=== PATIENT | male | born 1950 | race Caucasian/White ===

== ENCOUNTER 2016-04-05 06:12 | Inpatient (IN) | payer OTHER ==
[2016-03-07 08:39] VITALS: BMI 55.0
--- NOTE | 2016-03-07 09:18 | PAT Medication Instructions ---
Service Date Mar 07, 2016. Current Home Medication List Naproxen (Aleve), 220 MG PO Q12 PRN for Pain Medication Instructions For Your Scheduled Surgery Naproxen (Aleve), 220 MG PO Q12 PRN for Pain (per surgeon instructions) - Take the following medications the morning of surgery with a sip of water: Tylenol (if needed) - Take the following medications as scheduled the night before surgery: Tylenol (if needed) If you have any questions please call us at [phone] or [phone] ( [place]) or [phone]
--- NOTE | 2016-03-07 10:09 | DIAGNOSTIC IMAGING REPORT ---
CHEST PREADMISSION(PA/LAT) CLINICAL HISTORY: Preoperative chest COMPARISON STUDY: No previous studies for comparison. FINDINGS: The heart is borderline enlarged. There is no failure. There is no focal pulmonary consolidation. There are no pleural effusions.[ IMPRESSION: No active disease in the chest. Electronically signed by: Alexandru Almendarez M.D. 03/07/2016 10:07 AM
[2016-03-07 10:14] LABS: BASO % 0.3 %; BASO ABS # 0.02 K/uL (0-0.2); COMPLETE YES; EOS % 3.5 %; IG% 0.3 %; LYMPH % 31.2 %; MEAN CELL VOLUME 85.2 fL (80-100); MEAN CORPUSCULAR HEMOGLOBIN 27.7 pg (25-34); MEAN CORPUSCULAR HGB CONC 32.4 g/dl (32-36); MEAN PLATELET VOLUME 9.7 fL (7.4-10.4); MONO % 9.2 %; NEUT % 55.5 %; PLATELET COUNT 321 K/uL (130-400); RED BLOOD COUNT 4.81 M/uL (4.7-6.1); WHITE BLOOD COUNT 7.05 K/uL (4.8-10.8)
[2016-03-07 10:29] LABS: PARTIAL THROMBOPLASTIN RATIO 1.1; PROTHROMBIN TIME (PATIENT) 10.5 SECONDS (9.0-12.0)
[2016-03-07 11:42] LABS: BUN/CREATININE RATIO 23.4 (10-20); C-REACTIVE PROTEIN 1.18 mg/dl (0-0.29); CREATININE 0.7 mg/dl (0.60-1.40); POTASSIUM 4.5 mmol/L (3.5-5.1)
[2016-03-07 11:49] LABS: CALCIUM 9.4 mg/dl (8.5-10.1)
--- NOTE | 2016-03-24 19:12 | HISTORY & PHYSICAL EXAMINATION ---
DATE OF ADMISSION: 04/05/2016 CHIEF COMPLAINT: Left knee pain. HISTORY OF PRESENT ILLNESS: A 66-year-old gentleman who presents for surgical treatment of his left knee. He has got a long history of knee problems. He was right knee replacement done in [facility] in 2011. He did pretty well from this knee, but having some aches and pains. Over the years, he has developed increased pain and discomfort in his left knee. He has got global pain in his knee a little bit more so than the medial side. It is increased with weightbearing. The more he walks, the more it hurts. He limps. He would like to proceed with knee replacement surgery. Of note, with respect to the other knee, he does have some discomfort in it. He had no problems with wound healing or signs of infection. PAST MEDICAL HISTORY: Obesity with a BMI of 55 and weight of 395. PAST SURGICAL HISTORY: Include right total knee replacement done in 2011. ALLERGIES: None. CURRENT MEDICATIONS: None. SOCIAL HISTORY: A 66-year-old male. He lives in [place]. Self employed. No alcohol intake. Two children. FAMILY HISTORY: Noncontributory. REVIEW OF SYSTEMS: Negative for diabetes, neurologic problems, vascular problems, bleeding disorders. Denies any chest pain, no shortness of breath. No history of DVT or PE. PHYSICAL EXAMINATION: GENERAL: Reveals a large, middle-aged male. He looks to be in good health. HEENT: Benign. NECK: Supple. No lymphadenopathy. LUNGS: Clear to auscultation. HEART: Regular rate and rhythm. ABDOMEN: Soft, nontender, nondistended. EXTREMITIES: Grossly neurovascularly intact except as follows: Examination of the left knee reveals the patient walks with a waddling gait. He has got varus alignment to his knee. Increased with weightbearing. He has got a varus thrust. He has moderate to large soft tissue envelope. Range of motion is 0-120. Examination of the right knee reveals well-healed incision. Minimal swelling. Range of motion is 0-110. Good straight leg raise. I do not detect an effusion. X-RAYS: X-rays of the left knee revealed advanced left knee DJD. He has got complete loss of his medial joint space. He has got subchondral sclerosis. He has osteophytes up the medial femoral condyle and medial tibial plateau. Examination of the right knee reveals posterior stabilized total knee arthroplasty. Has a bit of an oblique film. A little lucency around the tibial tray. ASSESSMENT: A 66-year-old gentleman 4 years out from right knee replacement with advanced left knee degenerative joint disease. He would like to have his left knee replaced. PLAN: We did do a workup and his sed rate and C-reactive protein were slightly elevated, so I aspirated his right knee. I have got very minimal fluid, and sent it off and there was no growth. The patient desired to proceed with left knee replacement. The plan is we are going to take him to the operating room and do a left total knee replacement. The risks and benefits of this procedure were explained to the patient including but not limited to DVT, PE, , infection, neurological injury, vascular injury, bleeding problem, pain, limited range of motion, stiffness, failure to relieve symptoms, incomplete relief of symptoms, need for further surgery in the future, fracture, persistent pain, loosening, etc. The patient is a very large gentleman. I do think he is probably starting to get some loosening of his right knee, so we are going to put a long stem on his tibial component to try and minimize loosening due to his large size. The patient did have a preoperative workup. Sed rate and C-reactive protein was slightly elevated so we did aspirate his knee, it showed 5000 white cells and the culture was negative. I think it is likely this is all related to some early loosening of his tibial tray. I do not see any signs of clinical infection. As far as discharge plans, he is planning to be discharged to home using a [facility] home health program. I will see him back 2 weeks postop.
[2016-04-05] VITALS (8 sets, daily range): BP systolic 127–168; BP diastolic 65–84; PULSE 73–98; TEMP 36.4–36.8; O2SAT 95–100; Ht 180.3 cm; Wt 179.4 kg
[~2016-04-05] VITALS: Ht 180.3 cm; Wt 179.4 kg
[~2016-04-05 06:12] MED LIST: ACETAMINOPHEN 500 MG TAB PO SCH; BUPIVACAINE LIPOSOME 266 MG, BUPIVACAINE/EPINEPHRINE INJ 50 ML, SODIUM CHLORIDE 0.9% PF... INFIL SCH; CEFAZOLIN 3000 MG/65 ML D5W 65 ML IV SCH; CeleBREX 200 MG CAP PO SCH; FAMOTIDINE 20 MG TAB PO SCH; GABAPENTIN 300 MG CAP PO SCH; LACTATED RINGER'S 1000ML IV SCH; LACTATED RINGER'S 500 ML IV SCH; METOCLOPRAMIDE HCL 10 MG TAB PO SCH; NAPR1TAB9 PO; SCOPOLAMINE 1.5 MG TDSY TD SCH; TRANEXAMIC ACID INJ 1,000 MG in SODIUM CHLORIDE 0.9% 100ML 100 ML IV SCH
[2016-04-05] MEDS ORDERED: BUPIVACAINE 0.5 % 5 MG/1 ML PF 10ML VIAL ONE (06:39)
[2016-04-05] MEDS ORDERED: BUPIVACAINE 0.25% 30 ML VIAL ONE (06:40)
--- NOTE | 2016-04-05 06:49 | History & Physical Bridge Note ---
H&P Re-Evaluation Bridge Note: I have examined the patient, reviewed the History & Physical and in the interval since the performance of the History & Physical I have noted the following changes of clinical significance: No changes noted
[2016-04-05] MEDS ORDERED: MIDAZOLAM HCL 1 MG/ML 2ML VIAL ONE ×3 (08:24→09:21)
[2016-04-05] MEDS ORDERED: FENTANYL CITRATE INJ 50 MCG/1 ML 2 ML VIAL ONE (08:25)
[2016-04-05] MEDS ORDERED: PROPOFOL IV EMULSION 10 MG/ML 20 ML VIAL IV ONE ×3 (08:37→10:45)
[2016-04-05] MEDS ORDERED: PHENYLEPHRINE 100MCG/ML 5ML SYR ONE (09:07)
[2016-04-05] MEDS ORDERED: BUPIVACAINE LIPOSOME 1/3% 266 MG/20 ML VIAL INFIL ONE (09:22)
[2016-04-05] MEDS ORDERED: MIX: SENSORCAINE W/EPI+NSS+EXPAREL INJ ONE (11:27)
[2016-04-05] MEDS ORDERED: BACITRACIN 50000 UNIT VIAL IR ONE (11:27)
[2016-04-05] MEDS ORDERED: ZOLPIDEM TARTRATE 5 MG TAB PO PRN (11:30)
[2016-04-05] MEDS ORDERED: MoRPHine SULFATE 2 MG/ML CARP IV PRN (11:30)
[2016-04-05] MEDS ORDERED: ONDANSETRON INJ 2 MG/ML 2 ML VIAL IV PRN (11:30)
[2016-04-05] MEDS ORDERED: DiphenhydrAMINE HCL 50 MG/ML VIAL IV PRN (11:30)
[2016-04-05] MEDS ORDERED: MAGNESIUM HYDROXIDE SUSP 30 ML UDC PO PRN (11:30)
[2016-04-05] MEDS ORDERED: ALUMINUM/MAGNESIUM/SIMETH (MAALOX MAX) 30 ML UDC PO PRN (11:30)
[2016-04-05] MEDS ORDERED: SILVER SULFADIAZINE 1% CR 50 GM JAR EXT PRN (11:30)
[2016-04-05] MEDS ORDERED: TAMSULOSIN HCL 0.4 MG CAP PO PRN (11:30)
[2016-04-05] MEDS ORDERED: METOCLOPRAMIDE HCL INJ 5 MG/ML 2 ML VIAL IV PRN (11:30)
[2016-04-05] MEDS ORDERED: BISACODYL 10 MG SUPP PR PRN (11:30)
--- NOTE | 2016-04-05 11:30 | [facility] Post Operative Brief Note ---
Immediate Operative Summary Operative Date Apr 05, 2016. Pre-Operative Diagnosis Left knee degenerative joint disease Post-Operative Diagnosis Left knee degenerative joint disease Procedure(s) Performed Left total knee arthroplasty Surgeon Dr. Gurdeep Stephenson Field Technical Assistant Surgeon(s) Paco Baugh PA-C Estimated Blood Loss 50 cc Findings Left Knee DJD Fluids (cc crystalloids) 1600 cc Specimens A. Left knee bone and tissue Drains None Anesthesia Spinal Complication(s) None Disposition Recovery Room / PACU
--- NOTE | 2016-04-05 12:02 | OPERATIVE REPORT ---
DATE OF OPERATION: 04/05/2016 SURGEON: Dr. Gurdeep Stephenson. ORNAMENTAL PAINTER: CARINE Gambino PREOPERATIVE DIAGNOSIS: Left knee degenerative joint disease. POSTOPERATIVE DIAGNOSIS: Same. PROCEDURE PERFORMED: Left cemented posterior stabilized total knee arthroplasty. COMPLICATIONS: None. ESTIMATED BLOOD LOSS: 50 mL. FLUID REPLACEMENT: 1600 mL crystalloid fluid replacement. ANESTHESIA: Spinal with adductor canal block. DRAINS: None. SPECIMENS: Left knee sent for pathology. TOURNIQUET TIME: 86 minutes at 350 mmHg. OPERATIVE INDICATIONS: The patient is a 66-year-old very large gentleman with a BMI 55, who had a long history of bilateral knee problems. He underwent a right knee replacement about 4 years ago done at [facility]. He had done pretty well from this, but had some pain more recently. He had a workup, which suggest may be early signs of some loosening. We did an infectious workup, which was negative. He continued to have persistent pain and discomfort in his left knee and he elected to proceed with a total knee arthroplasty. He failed conservative care. OPERATIVE FINDINGS: Operative findings revealed advanced left knee DJD. He had extensive grade 4 disease of the medial femoral condyle and medial tibial plateau. He had fixed varus deformity to his knee. He had a very large soft tissue envelope. OPERATIVE IMPLANTS: Operative implants consisted of: 1. Biomet Vanguard size 70 left posterior stabilized femoral component. 2. A Biomet size 75 tibial tray with a 80 x 14 stem with a 7.5-mm offset adapter and a large cruciate wing. 3. A 10-mm posterior stabilized polyethylene insert. 4. A 34 x 8 all poly patella. OPERATIVE PROCEDURE: The patient was taken to the operating room, identified and placed on the operating table in the supine position. All contact areas were appropriately padded. IV antibiotics were provided by the anesthesia team. A spinal anesthetic and adductor canal block had been provided in the holding area. A Young catheter was placed in sterile fashion. Left thigh tourniquet was then placed and left lower extremity was then prepped and draped in the usual sterile fashion. The left leg was elevated and exsanguinated with Esmarch and tourniquet was placed at 350 mmHg. An anterior approach of the left knee was then performed through a longitudinal incision centered over the patella. Sharp dissection was carried out through the subcutaneous tissue down to the level of the extensor mechanism. A medial parapatellar arthrotomy incision was made. Some subperiosteal dissection was carried out medially. The fat pad was resected from beneath the patellar tendon. Lateral patellofemoral ligament was released. The knee was flexed. I subluxated the patella. The osteophytes were taken off the distal femur. The ACL and PCL were then released from the distal femur and the tibia subluxated anteriorly. The external tibial alignment jig was then placed in the anterior face of the tibia. The osteophytes were taken off the distal femur. The tibia subluxated anteriorly. Due to his large size, we elected to place a tibial stem. The intercondylar eminence was removed. I then entered the tibial plateau and a central aspect of the tibial canal. We reamed down to a size 14. I then cut the proximal tibia to remove about 3 mm of bone from the most deficient aspect of the medial tibial plateau. He did not have a lot of excessive wear. It was hard to prepare the tibia at this point, so we elected to cut the femur before preparing the tbia. The distal femur was entered with a sharp drill. Intramedullary canal was suctioned. A left 6-degree valgus cutting guide was placed and distal femoral cutting block was pinned in place. Distal femoral cut was made to take an additional 3 mm of bone off the distal femur. The femur was then sized to a size 70. We did downsize this slightly. The AP cutting block was pinned parallel to the epicondylar axis, which was 5 degrees of external rotation. The anterior cut, anterior chamfer, posterior cut, and posterior chamfer cuts were made. Box cutting guide was placed and adjusted slightly lateral and the box cut was made. The knee was flexed. The remnants of the medial and lateral menisci were excised. The osteophytes were taken off the posterior aspect of the femur. I then went to preparing the tibia. The IM reamer was placed down the IM canal. We then sized the tibia to a size 75. Some osteophytes were taken off medial and posteromedially. We then sized this for 7.5 offset. A reamer was removed and the trial stem was placed and we adjusted the tibia to try to get maximum coverage. This was set at #8 on the offset stem. We then prepared the proximal tibia with the reamer in the large cruciate wing. We then trialed the knee and a 10-mm insert fit most appropriately. Attention was then drawn to the patella. The patella was cleaned of all soft tissues. Patella thickness measured 24 mm and cut down to 14. It was sized to a size 34 patella. Lug holes were drilled for a 34 patella. Lateral osteophyte was removed. Patella button was placed. Knee was taken through range of motion and patella tracked nicely with no thumbs test. Attention was then drawn toward placement of the permanent components. All trial components were removed. The knee was irrigated with copious amounts of pulsatile lavage solution. A bone plug was placed in the distal femur to limit blood loss. A double batch of Palacos G cement was mixed. A left size 70 posterior stabilized femoral component, size 75 tibial tray with an 80 x 14 mm offset stem was then placed with cementing the metaphyseal and surface only. We did not cement the stem. The 10-mm posterior stabilized polyethylene insert was placed. The 34-mm patella was placed. Knee was brought out into full extension until cement hardened. A final cement check was then performed. Pericapsular tissues were injected with 100 mL of a combination of 20 mL of Exparel, 30 mL of normal saline, and 50 mL of 0.25% Marcaine with epinephrine. The patient did receive 1 gram of tranexamic acid. The tourniquet was let down for a tourniquet time of 86 minutes. Hemostasis was assured with use of electrocautery. The wound was once again irrigated. The extensor mechanism was then closed with a combination of #1 PDS suture and #1 Vicryl suture in a [id number] fashion. Extensor mechanism was checked and found to be intact. Subcutaneous tissues were then closed with 2-0 Dexon suture in a buried interrupted fashion. Skin was closed skin bridger. Leg was then cleaned and dried and a sterile dressing of Xeroform, 4 x 4, sterile cast padding and Brannon bandage were applied. The patient then transferred to the recovery room in stable condition. The patient tolerated the procedure well with no complications. All needle and sponge counts were correct at the end of the operation. I attest to the content of the Intraoperative Record and any orders documented therein. Any exceptions are noted below. CHRISTINA
--- NOTE | 2016-04-05 12:05 | Anesthesiology Progress Note ---
Anesthesia Post Op Note Date & Time Apr 05, 2016 at 12:04 Vital Signs Pain Intensity: 0 Vital Signs Past 12 Hours Date Time Temp Pulse Resp B/P Pulse Ox O2 Delivery O2 Flow Rate FiO2 04/05/16 11:49 78 19 04/05/16 11:49 78 19 156/71 98 04/05/16 11:44 82 27 96 04/05/16 11:44 82 27 04/05/16 11:43 155/72 04/05/16 11:39 81 14 96 04/05/16 11:39 36.7 84 16 149/76 96 Nasal Cannula 2 04/05/16 11:39 82 14 04/05/16 07:21 36.7 90 20 166/82 98 Room Air Notes Mental Status: alert / awake / arousable, participated in evaluation Pt Amnestic to Procedure: Yes Nausea / Vomiting: adequately controlled Pain: adequately controlled Airway Patency, RR, SpO2: stable & adequate BP & HR: stable & adequate Hydration State: stable & adequate Neuraxial Anesthesia: was administered, sensory block is resolving Anesthetic Complications: no major complications apparent
--- NOTE | 2016-04-05 12:11 | DIAGNOSTIC IMAGING REPORT ---
TWO VIEWS LEFT KNEE CLINICAL HISTORY: Postoperative examination. FINDINGS: AP and crosstable lateral portable views of the left knee are obtained. A left knee arthroplasty is in near anatomic alignment. There has been undersurface remodeling of the patella. No acute fracture is seen. There is a long tibial stem. There are expected postoperative changes around the knee including skin clips, soft tissue edema, and subcutaneous gas. A calcified fabella is incidentally noted. IMPRESSION: Expected postoperative changes status post left knee arthroplasty. No acute fracture is seen. Electronically signed by: Alex Kline M.D. 04/05/2016 12:10 PM Dictated Date/Time: 04/05/2016 12:09 PM
[2016-04-05] MEDS ORDERED: ATROPINE SULFATE 0.1 MG/ML 5ML SYR IV PRN (12:15)
[2016-04-05] MEDS ORDERED: EpHEDrine SULFATE INJ 50 MG/ML AMP IV PRN (12:15)
[2016-04-05] MEDS: D5W AND 1/2NSS + 20MEQ KCL 1,000 ML IV SCH ×2 (13:28→19:59)
[2016-04-05] MEDS: ACETAMINOPHEN 500 MG TAB PO SCH ×2 (14:28→21:40)
[2016-04-05] MEDS: CHECK SCOPOLAMINE PATCH PLACEMENT SCH ×2 (15:34→23:18)
[2016-04-05] MEDS: CEFAZOLIN IV 2,000 MG in DEXTROSE 5% 50ML 50 ML IV SCH (17:06)
[2016-04-05] MEDS: FERROUS GLUCONATE 324 MG TAB PO SCH (17:57)
[2016-04-05] MEDS: KETOROLAC TROMETHAMINE 30 MG/ML VIAL IV. SCH ×2 (17:58→23:19)
[2016-04-05] MEDS ORDERED: TRANEXAMIC ACID INJ 1,000 MG in SODIUM CHLORIDE 0.9% 100ML 100 ML IV SCH (18:00)
[2016-04-05] MEDS: DOCUSATE SODIUM 100 MG CAP PO SCH (20:01)
[2016-04-05] MEDS: ASPIRIN 325 MG ECTAB PO SCH (20:02)
[2016-04-05] MEDS: TAPENTADOL ER 50 MG TABCR PO SCH (20:04)
[2016-04-05] MEDS: OXYCODONE HCL IR 5 MG TAB (IMMEDIATE RELEASE) PO PRN (21:38)
[2016-04-05] MEDS ORDERED: NURSING VERBAL MED ORDER ONE (22:00)
[2016-04-05] MEDS ORDERED: SODIUM CHLORIDE 0.65% NA SOLN 45 ML (OCEAN) PRN (22:15)
[2016-04-06] MEDS: CEFAZOLIN IV 2,000 MG in DEXTROSE 5% 50ML 50 ML IV SCH (00:36)
[2016-04-06] MEDS: D5W AND 1/2NSS + 20MEQ KCL 1,000 ML IV SCH ×2 (02:07→09:01)
[2016-04-06 03:30] VITALS: BP 128/78; PULSE 94; TEMP 36.6; O2SAT 95
[2016-04-06] MEDS: ACETAMINOPHEN 500 MG TAB PO SCH ×3 (05:34→21:47)
[2016-04-06] MEDS: KETOROLAC TROMETHAMINE 30 MG/ML VIAL IV. SCH ×3 (05:34→17:49)
[2016-04-06] MEDS: CHECK SCOPOLAMINE PATCH PLACEMENT SCH ×2 (07:45→15:32)
[2016-04-06 08:00] VITALS: BP 169/78; PULSE 89; TEMP 36.9; O2SAT 95
[2016-04-06 08:04] LABS: HEMATOCRIT 36.1 % (42-52); MEAN CELL VOLUME 84.9 fL (80-100); MEAN CORPUSCULAR HEMOGLOBIN 28.5 pg (25-34); MEAN CORPUSCULAR HGB CONC 33.5 g/dl (32-36); MEAN PLATELET VOLUME 9.6 fL (7.4-10.4); PLATELET COUNT 277 K/uL (130-400); RED BLOOD COUNT 4.25 M/uL (4.7-6.1); WHITE BLOOD COUNT 11.51 K/uL (4.8-10.8)
[2016-04-06 08:25] LABS: BUN/CREATININE RATIO 19.6 (10-20); CALCIUM 8.5 mg/dl (8.5-10.1); CREATININE 0.85 mg/dl (0.60-1.40); POTASSIUM 4.3 mmol/L (3.5-5.1)
[2016-04-06] MEDS: MULTIVITAMIN TAB PO SCH (09:02)
[2016-04-06] MEDS: DOCUSATE SODIUM 100 MG CAP PO SCH ×2 (09:02→20:50)
[2016-04-06] MEDS: FERROUS GLUCONATE 324 MG TAB PO SCH ×3 (09:02→17:48)
[2016-04-06] MEDS: PANTOprazole SOD 40 MG TAB PO SCH (09:02)
[2016-04-06] MEDS: ASPIRIN 325 MG ECTAB PO SCH ×2 (09:02→20:50)
[2016-04-06] MEDS: TAPENTADOL ER 50 MG TABCR PO SCH ×2 (09:08→20:50)
--- NOTE | 2016-04-06 10:24 | Anesthesiology Progress Note ---
Anesthesia Post Op Note Date & Time Apr 06, 2016 at 10:23 Vital Signs Pain Intensity: 0.0 Vital Signs Past 12 Hours Date Time Temp Pulse Resp B/P Pulse Ox O2 Delivery O2 Flow Rate FiO2 04/06/16 08:00 36.9 89 18 169/78 95 Room Air 04/06/16 07:23 Room Air 04/06/16 03:30 36.6 94 18 128/78 95 Room Air 04/05/16 23:10 36.8 98 16 127/65 95 Room Air Notes Mental Status: alert / awake / arousable, participated in evaluation Pt Amnestic to Procedure: Yes Nausea / Vomiting: adequately controlled Pain: adequately controlled Airway Patency, RR, SpO2: stable & adequate BP & HR: stable & adequate Hydration State: stable & adequate Neuraxial Anesthesia: sensory block resolved Anesthetic Complications: no major complications apparent
[2016-04-06 13:08] VITALS: BP 133/69; PULSE 82; TEMP 37; O2SAT 96
[2016-04-06] MEDS ORDERED: OXYC-57 PO (14:32)
[2016-04-06] MEDS ORDERED: ASPEC325 PO (14:32)
[2016-04-06] MEDS ORDERED: MORP15TA19 PO (14:32)
--- NOTE | 2016-04-06 14:34 | Discharge Instructions ---
Discharge Instructions Admission Reason for Admission: Left Knee Degenerative Joint Disease Discharge Discharge Diagnosis / Problem: Left Knee Replacement Discharge Goals Goal(s): Decrease discomfort, Improve function, Increase independence, Improve disease control, Therapeutic intervention Activity Recommendations Activity Limitations: per Instructions/Follow-up section Weightbearing Status: Left weightbearing . Instructions / Follow-Up Instructions / Follow-Up ACTIVITY RECOMMENDATIONS: Physical Therapy: * You will go to physical therapy three times each week for four to six weeks after your surgery in order to regain your knee range of motion and to retrain your knee to work properly. * It is just as important to make sure you are getting your knee perfectly straight as it is to regain your knee bend. * Taking a pain pill an hour before therapy can help you have a more productive and comfortable therapy session. Home Exercise: * You were shown a series of exercises (heel props, heel slides, etc.) in the hospital. Do these exercises three to four times each day including the exercises you were shown in physical therapy. Walking: * Get up and walk several times each day. For the first four weeks, try not to stand or walk for more than one hour at a time. If you do stand or walk for more than one hour, you will not hurt anything, but your knee and leg will likely swell. * As you feel comfortable, you may change from the walker or crutches to a cane and then to independent walking. MEDICATIONS: New Medicine: * You will likely be taking one or more of these medications: 1. MS Contin - A long-acting pain medication. Take 1 tablet twice a day for the first ten days to decrease your baseline level of pain. 2. Percocet - A quick and shorter-acting pain medication. Take one to two tablets every four to six hours to lessen your pain. 3. Aspirin - Thins your blood to lessen the chance of forming a blood clot. * The most common side effects of pain medicine and iron are nausea and constipation. If nausea or constipation is too much of a problem or if you have any questions about your new medicines or doses, call [facility] at . We will try to help you manage these issues. VERY IMPORTANT TO READ AND REVIEW" Pain: * The immediate post-operative period after knee replacement surgery is often quite painful. * You are given a prescription for pain medicine. You should take it, as directed, when you need it, especially before physical therapy and before going to bed. Pain that interferes with sleep is very common and can last several months. * You will likely need pain medicine for the first four to six weeks. It will not stop all of the pain. The pain will lessen and as you feel better, you may change to milder pain medicine such as Tylenol. * The most common side effects of pain medicine are nausea and constipation, so don't take more than you need. SPECIAL CARE INSTRUCTIONS: TEDs/Elastic Stockings: * The white elastic stockings help limit swelling and prevent blood clots from forming in your legs. The more you wear them, the more they work. * Wear them for six weeks after knee replacement surgery and four weeks after partial knee replacement. Prevention of Infection: * Take antibiotics one hour before any dental cleaning, dental work, urological procedure, gastrointestinal procedure or any invasive surgery in order to prevent your new joint from getting infected. * You may get the antibiotics from the doctor performing the procedure or you may call our office at before and we will call in a prescription to the pharmacy of your choice. Things to Watch For: * Drainage from the incision site that occurs more than one week after your surgery. * Severely increased knee/leg pain or swelling. * Increased redness at the incision site. * Fever above 102 degrees Fahrenheit. * Unusual chest pain or shortness of breath. * Unusual pain or burning with urination. Call [facility] at with any of the above problems or if you have any questions about your medicines or recovery. FOLLOW UP VISIT: Make an appointment to see your doctor for approximately two weeks after surgery for a progress check and staple removal by calling the office at . Current Hospital Diet Patient's current hospital diet: Regular Diet Discharge Diet Recommended Diet: Regular Diet Procedures Procedures Performed: Left total knee arthroplasty Pending Studies Studies pending at discharge: no Medical Emergencies . Who to Call and When: Medical Emergencies: If at any time you feel your situation is an emergency, please call [phone] immediately. . Non-Emergent Contact Non-Emergency issues call your: Surgeon . "Provider Documentation" section prepared by Gurdeep Stephenson. VTE Core Measure Inpt VTE Proph given/why not?: Other Anticoagulation, T.E.D. Stockings, SCD's
--- NOTE | 2016-04-06 14:49 | PROGRESS NOTE ---
DATE: 04/06/2016 SUBJECTIVE: A 66-year-old gentleman postop day 1 from a left knee replacement. He is doing well. Pain is controlled. Therapy went pretty well. No chest pain or shortness of breath. Not feeling dizzy or lightheaded. OBJECTIVE: VITAL SIGNS: Temperature 37.0. Vital signs stable. PHYSICAL EXAMINATION: GENERAL: Healthy, pleasant middle-aged male. He is sitting up in his bedside chair and looks comfortable. LUNGS: Clear to auscultation. HEART: Has a regular rate and rhythm. ABDOMEN: Soft, nontender, nondistended. EXTREMITIES: Grossly neurovascularly intact except as follows: Examination of the left lower extremity reveals the dressing to be clean, dry, and intact. He can dorsiflex and plantarflex his foot appropriately. He is neurologically intact. LABS: Hemoglobin is 12.1, hematocrit 36.1, white cell count 11.51. Electrolytes are stable. ASSESSMENT: A 66-year-old gentleman postop day 1 from a left knee replacement, doing well. His pain is controlled. Therapy went well. He is neurologically intact. PLAN: 1. DVT prophylaxis including thigh-high TEDs, SCDs, and aspirin twice a day. 2. PT/OT. Weightbearing as tolerated. Left total knee protocol. 3. Pain control, doing well with current pain regimen. 4. Disposition: Plan to discharge to home with home health once adequately recovered.
[2016-04-06 15:17] VITALS: BP 130/69; PULSE 89; TEMP 37.1; O2SAT 98
[2016-04-06 23:22] VITALS: BP 132/60; PULSE 96; TEMP 37; O2SAT 95
[2016-04-07] MEDS: KETOROLAC TROMETHAMINE 30 MG/ML VIAL IV. SCH ×2 (00:02→06:06)
[2016-04-07] MEDS: CHECK SCOPOLAMINE PATCH PLACEMENT SCH (00:02)
[2016-04-07] MEDS: ACETAMINOPHEN 500 MG TAB PO SCH (06:06)
[2016-04-07 06:55] VITALS: BP 138/80; PULSE 80; TEMP 36.7; O2SAT 96
[2016-04-07] MEDS: DOCUSATE SODIUM 100 MG CAP PO SCH (07:28)
[2016-04-07] MEDS: TAPENTADOL ER 50 MG TABCR PO SCH (07:32)
[2016-04-07] MEDS: FERROUS GLUCONATE 324 MG TAB PO SCH (07:32)
[2016-04-07] MEDS: MULTIVITAMIN TAB PO SCH (07:32)
[2016-04-07] MEDS: PANTOprazole SOD 40 MG TAB PO SCH (07:33)
--- NOTE | 2016-04-07 07:41 | PROGRESS NOTE ---
DATE: 04/07/2016 DATE: 04/07/2016. SUBJECTIVE: A 66-year-old gentleman postop day 2 from a left knee replacement. He is doing well. Pain is controlled. No chest pain or shortness of breath. Not feeling dizzy or lightheaded. OBJECTIVE: VITAL SIGNS: Temperature 36.7. Vital signs stable. PHYSICAL EXAMINATION: GENERAL: Reveals a healthy, pleasant, middle-aged male. He is sitting up in bed and looks comfortable. LUNGS: Clear to auscultation. HEART: Has a regular rate and rhythm. ABDOMEN: Soft, nontender, nondistended. EXTREMITY EXAMINATION: Grossly neurovascularly intact except as follows: Examination of the left lower extremity reveals the wound to be clean, dry and intact. No significant drainage. Calf is soft and supple. He is neurologically intact. ASSESSMENT: A 66-year-old gentleman postop day 2 from a left knee replacement, doing well. PLAN: 1. DVT prophylaxis including thigh-high TEDs, SCDs, and aspirin twice a day. 2. PT/OT. Weightbearing as tolerated. Left total knee protocol. 3. Pain control. Doing well on current pain regimen. 4. Disposition. Plan to discharge to home with home health later today.
[2016-04-07] MEDS: ASPIRIN 325 MG ECTAB PO SCH (07:44)
[2016-04-07] MEDS: OXYCODONE HCL IR 5 MG TAB (IMMEDIATE RELEASE) PO PRN (07:46)
[2016-04-07 09:20] VITALS: BP 138/80; PULSE 80; TEMP 36.7; O2SAT 96
--- NOTE | 2016-04-14 15:09 | DISCHARGE SUMMARY ---
ADMITTING PHYSICIAN AND SURGEON: Dr. Stephenson. ADMITTING DIAGNOSIS: Left knee degenerative joint disease. SURGERY PERFORMED: Left total knee arthroplasty. SECONDARY DIAGNOSES: Include obesity. CONSULTS: None obtained. HISTORY AND PHYSICAL EXAMINATION: Well documented in patient's chart. HOSPITAL COURSE: The patient was admitted on 04/05/2016 and underwent total knee arthroplasty. He tolerated the procedure well. There were no complications. He was transferred to the PACU postoperatively and later to the orthopedic floor for further care. He was given Ancef for antibiotic prophylaxis, CHAYA stockings, SCDs and aspirin for DVT prophylaxis. Hemoglobin, hematocrit and vital signs were monitored during his hospital stay and remained stable. He developed some mild postoperative anemia, did not require any blood transfusions. There were no complications. By postoperative day 2, he was tolerating a general diet. Pain was controlled with oral pain medicine. He was participating in physical therapy and had no signs or symptoms of deep vein thrombosis. On postoperative day 2, he was discharged home in good condition, set up with home health services, given printed discharge instructions including prescriptions for aspirin 325 mg b.i.d., MS Contin and Percocet. Continue his home medicines which was only Aleve, continue physical therapy, weightbearing as tolerated, CHAYA stockings. Follow up with Dr. Stephenson in 10-12 days or sooner if there are problems or concerns.
== END 2016-04-07 11:32 | disposition home health service (06) | DRG 470 ==
LOC: ENRESERVDT → ENRESERVTM → C.ACU 06:12 → C.3E 07:10
PROVIDERS: ADMIT Orthopaedic Surgery Sports Medicine; ATTEND Orthopaedic Surgery Sports Medicine
PROC: 0SRD0J9 Replacement of Left Knee Joint with Synthetic Substitute, Cemented, Open Approach (ICD-10-PCS; principal; 2016-04-05 08:50)
DX: M17.12 Unilateral primary osteoarthritis, left knee (principal); Z68.43 Body mass index [BMI] 50.0-59.9, adult; M21.162 Varus deformity, not elsewhere classified, left knee; E66.09 Other obesity due to excess calories; Z96.651 Presence of right artificial knee joint